=== PATIENT | male | born 1950 | race Caucasian/White ===

== ENCOUNTER 2024-06-28 20:34 | Emergency (ER) | payer SELFPAY ==
[~2024-06-28] VITALS: Ht 177.8 cm; Wt 90.0 kg
[2024-06-28 20:41] VITALS: BP 160/66; PULSE 104; RESP 18; TEMP 98; O2SAT 99
== END 2024-06-28 22:14 | disposition left against medical advice (07) ==
LOC: ER 20:34
DX: F91.8 Other conduct disorders (principal); E11.9 Type 2 diabetes mellitus without complications; I10 Essential (primary) hypertension
CPT/HCPCS: 99283